=== PATIENT | female | born 1945 | race Caucasian/White ===

== ENCOUNTER 2018-07-20 06:46 | Day surgery (SDC) | payer OTHER ==
[2018-07-20] MEDS: BETADINE OPTH PREP OP PRN ×3 (07:17→08:01)
[2018-07-20] MEDS: TETRACAINE 0.5% UNIT-DOSE OP PRN ×3 (07:17→08:01)
[2018-07-20] MEDS: CYCLOGYL 2% OPTH OP PRN ×3 (07:21→07:31)
[2018-07-20] MEDS ORDERED: BRIMONIDINE TARTRATE 0.2% OPTH SOL OP PRN (07:23)
[2018-07-20] MEDS ORDERED: ZOFRAN 4 MG/2 ML IVP ONE (07:23)
[2018-07-20] MEDS ORDERED: LIDOCAINE 1% 20 ML MDV ID STA (07:23)
[2018-07-20] MEDS: BSS WITH EPINEPHRINE OP ONE ×2 (07:41→08:15)
[2018-07-20] MEDS: LIDOCAINE 1%/PHENYLEPHRINE 1.5% BSS (SURGERY) INTRAOCULA ONE ×2 (07:41→08:15)
[2018-07-20] MEDS: DEX-MOXI-KETOR OPTH INJ 1/0.5/0.4 MG/ML IO ONE ×2 (07:41→08:15)
[2018-07-20] MEDS ORDERED: ZOFRAN 4 MG/2 ML ONE (08:14)
[2018-07-20] MEDS ORDERED: VERSED ONE (08:14)
[2018-07-20] MEDS ORDERED: DIPRIVAN 20 ML VIAL IVP ONE (08:14)
[2018-07-20 12:18] VITALS: TEMP 98.4
[2018-07-20 15:15] VITALS: BP 135/56
== END 2018-07-20 09:10 | disposition home or self-care (01) ==
LOC: SURG 06:46
PROVIDERS: ATTEND Ophthalmology
DX: H25.811 Combined forms of age-related cataract, right eye (principal)

== ENCOUNTER 2018-08-03 07:20 | Day surgery (SDC) ==
[2018-08-03] MEDS: TETRACAINE 0.5% UNIT-DOSE OP PRN ×2 (07:40→08:55)
[2018-08-03] MEDS: BETADINE OPTH PREP OP PRN ×2 (07:40→08:55)
[2018-08-03] MEDS: CYCLOGYL 2% OPTH OP PRN ×3 (07:41→07:51)
[2018-08-03] MEDS ORDERED: BRIMONIDINE TARTRATE 0.2% OPTH SOL OP PRN (07:45)
[2018-08-03] MEDS ORDERED: BSS WITH EPINEPHRINE OP ONE (07:45)
[2018-08-03] MEDS ORDERED: LIDOCAINE 1% 20 ML MDV ID STA (07:45)
[2018-08-03] MEDS ORDERED: DEX-MOXI-KETOR OPTH INJ 1/0.5/0.4 MG/ML IO ONE (07:45)
[2018-08-03] MEDS ORDERED: LIDOCAINE 1%/PHENYLEPHRINE 1.5% BSS (SURGERY) INTRAOCULA ONE (07:45)
[2018-08-03] MEDS ORDERED: ZOFRAN 4 MG/2 ML IVP ONE (07:45)
[2018-08-03] MEDS ORDERED: VERSED ONE (09:00)
[2018-08-03] MEDS ORDERED: ZOFRAN 4 MG/2 ML ONE (09:00)
[2018-08-03] MEDS ORDERED: DIPRIVAN 20 ML VIAL IVP ONE (09:00)
[2018-08-03 12:12] VITALS: TEMP 97.6
[2018-08-03 16:12] VITALS: BP 128/78
== END 2018-08-03 10:00 | disposition home or self-care (01) ==
LOC: SURG 07:20
PROVIDERS: ATTEND Ophthalmology
DX: H25.812 Combined forms of age-related cataract, left eye (principal)